=== PATIENT | female | born 1985 | race Caucasian/White ===

== ENCOUNTER 2017-06-29 17:16 | Emergency (ER) | payer BC ==
[2017-06-29] MEDS ORDERED: Sodium Chloride 0.9% 1,000 ML IV ONE (17:46)
--- NOTE | 2017-06-29 17:49 | EDM.PDOC ---
ED HPI GENERAL MEDICAL PROBLEM - General Chief Complaint: General Stated Complaint: BODY TINGLY Time Seen by Provider: 06/29/17 17:26 - History of Present Illness INITIAL COMMENTS - FREE TEXT/NARRATIVE: HISTORY AND PHYSICAL: History of present illness: Patient 31-year-old white female history of anxiety who presents with a concern of dehydration they state she's had poor oral intake and has had similar episodes in the past. No fever chills nausea vomiting other concern Review of systems: As per history of present illness and below otherwise all systems reviewed and negative. Past medical history: As per history of present illness and as reviewed below otherwise noncontributory. Surgical history: As per history of present illness and as reviewed below otherwise noncontributory. Social history: No reported history of drug or alcohol abuse. Family history: As per history of present illness and as reviewed below otherwise noncontributory. Physical exam: HEENT: Atraumatic, normocephalic, pupils reactive, negative for conjunctival pallor or scleral icterus, mucous membranes dry, throat clear, neck supple, nontender, trachea midline. Lungs: Clear to auscultation, breath sounds equal bilaterally, chest nontender. Heart: S1S2, regular, negative for clicks, rubs, or JVD. Abdomen: Soft, nondistended, nontender. Negative for masses or hepatosplenomegaly. Negative for costovertebral tenderness. Pelvis: Stable nontender. Genitourinary: Deferred. Rectal: Deferred. Extremities: Atraumatic, negative for cords or calf pain. Neurovascular unremarkable. Neuro: Awake, alert, oriented. Cranial nerves II through XII unremarkable. Cerebellum unremarkable. Motor and sensory unremarkable throughout. Exam nonfocal. Diagnostics: CBC CMP hCG Therapeutics: Saline 1 L bolus Impression: #1 dehydration #2 history of anxiety Definitive disposition and diagnosis as appropriate pending reevaluation and review of above. 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 Psychiatric History: Reports: Anxiety - Infectious Disease History Infectious Disease History: Reports: Chicken Pox - Past Surgical History HEENT Surgical History: Reports: Oral Surgery Female Surgical History: Reports: Breast Implant Musculoskeletal Surgical History: Reports: Other (See Below) Social & Family History - Family History Family Medical History: Noncontributory - Tobacco Use Smoking Status *Q: Never Smoker Second Hand Smoke Exposure: No - Caffeine Use Caffeine Use: Reports: None - Recreational Drug Use Recreational Drug Use: No ED ROS GENERAL - Review of Systems Review Of Systems: ROS reveals no pertinent complaints other than HPI. ED EXAM, GENERAL - Physical Exam Exam: See Below (See dictation) Course - Vital Signs Last Recorded V/S: Last Vital Signs Temp 36.9 C 06/29/17 17:34 Pulse 69 06/29/17 17:34 Resp 24 H 06/29/17 17:34 BP 131/92 H 06/29/17 17:34 Pulse Ox 98 06/29/17 17:34 - Orders/Labs/Meds Orders: Active Orders 24 hr Category Date Time Status CBC WITH AUTO DIFF [HEME] Stat Lab 06/29/17 17:46 Ordered COMPREHENSIVE METABOLIC PN,CMP [CHEM] Stat Lab 06/29/17 17:46 Ordered HCG QUALITATIVE,SERUM [CHEM] Stat Lab 06/29/17 17:46 Ordered Sodium Chloride 0.9% [Normal Saline] 1,000 ml Med 06/29/17 17:46 Ordered IV STAT Departure - Departure Time of Disposition: 17:48 Disposition: Home, Self-Care 01 Condition: Good Clinical Impression: Dehydration, History of anxiety - Discharge Information Referrals: Ever Becerra MD [Primary Care Provider] - Additional Instructions: The following information is given to patients seen in the emergency department who are being discharged to home. This information is to outline your options for follow-up care. We provide all patients seen in our emergency department with a follow-up referral. The need for follow-up, as well as the timing and circumstances, are variable depending upon the specifics of your emergency department visit. If you don't have a primary care physician on staff, we will provide you with a referral. We always advise you to contact your personal physician following an emergency department visit to inform them of the circumstance of the visit and for follow-up with them and/or the need for any referrals to a consulting specialist. The emergency department will also refer you to a specialist when appropriate. This referral assures that you have the opportunity for followup care with a specialist. All of these measure are taken in an effort to provide you with optimal care, which includes your followup. Under all circumstances we always encourage you to contact your private physician who remains a resource for coordinating your care. When calling for followup care, please make the office aware that this follow-up is from your recent emergency room visit. If for any reason you are refused follow-up, please contact the [facility] emergency department at and asked to speak to the emergency department charge nurse. Continue current medications push fluids follow primary medical doctor 1-2 days return as needed as discussed - My Orders Last 24 Hours: My Active Orders 06/29/17 17:46 CBC WITH AUTO DIFF [HEME] Stat COMPREHENSIVE METABOLIC PN,CMP [CHEM] Stat HCG QUALITATIVE,SERUM [CHEM] Stat Sodium Chloride 0.9% [Normal Saline] 1,000 ml IV STAT - Assessment/Plan Last 24 Hours: My Active Orders 06/29/17 17:46 CBC WITH AUTO DIFF [HEME] Stat COMPREHENSIVE METABOLIC PN,CMP [CHEM] Stat HCG QUALITATIVE,SERUM [CHEM] Stat Sodium Chloride 0.9% [Normal Saline] 1,000 ml IV STAT
[2017-06-29] MEDS ORDERED: LORazepam 2 MG/ML MDV IVPUSH ONE (18:05)
[2017-06-29 18:23] LABS: CHLORIDE,CL 108 mmol/L (98-110); SODIUM,NA 141 mmol/L (136-146)
[2017-06-29 19:03] VITALS: BP 113/71
== END 2017-06-29 18:58 | disposition home or self-care (01) ==
LOC: MW.ED 17:16
DX: E86.0 Dehydration (principal); F41.9 Anxiety disorder, unspecified
CPT/HCPCS: 36415; 80053; 84703; 85025; 96361; 96374; 99284; J2060; J7040

== ENCOUNTER 2019-09-22 04:59 | Inpatient (IN) | payer SELFPAY ==
[2019-09-22] MEDS ORDERED: Tranexamic Acid 1,000 MG in Sodium Chloride 0.9% 100 ML IV PRN (05:39)
[2019-09-22] MEDS ORDERED: Butorphanol 1 MG/ML SDV IVPUSH PRN (05:39)
[2019-09-22] MEDS ORDERED: Misoprostol 200 MCG Tab PO PRN (05:39)
[2019-09-22] MEDS ORDERED: Sodium Chloride 0.9% 2.5 ML Syringe FLUSH PRN (05:39)
[2019-09-22] MEDS ORDERED: Sodium Chloride 0.9% 10 ML Syringe FLUSH PRN (05:39)
[2019-09-22] MEDS ORDERED: Lidocaine 1% 50 ML MDV INJECT PRN (05:39)
[2019-09-22] MEDS ORDERED: Water For Irrigation,Sterile 1,000 ML Container IRR PRN (05:39)
[2019-09-22] MEDS ORDERED: Methylergonovine 0.2 MG/1 ML Amp IM PRN (05:39)
[2019-09-22] MEDS ORDERED: Carboprost Tromethamine 250 MCG/1 ML Amp IM PRN (05:39)
[2019-09-22] MEDS ORDERED: Nalbuphine 10 MG/1 ML Vial IVPUSH PRN (05:39)
[2019-09-22] MEDS ORDERED: Sodium Chloride 0.9% 10 ML SDV IV PRN (05:39)
[2019-09-22] MEDS ORDERED: Terbutaline 1 MG/ML SDV SUBCUT PRN (05:42)
[2019-09-22] MEDS ORDERED: Oxytocin/0.9 % Sodium Chloride 30 UNIT/500 ML BAG IV SCH ×2 (05:45)
[2019-09-22] MEDS: Lactated Ringers 1,000 ML IV SCH ×3 (08:55→14:30)
[2019-09-22] MEDS ORDERED: fentaNYL 100 MCG/2 ML SDV ONE (14:01)
[2019-09-22] MEDS ORDERED: Ropivacaine 0.2% 2 MG/ML 20 ML SDV ONE (14:01)
[2019-09-22] MEDS ORDERED: Ropivacaine HCl/PF 100 ML ONE (14:02)
[2019-09-22] MEDS ORDERED: ePHEDrine 50 MG/ML SDV ONE (14:32)
--- NOTE | 2019-09-22 14:44 | PCM.PREANE ---
Preanesthetic Assessment - Procedure Proposed Procedure: Labor Epidural. . Active labor. Induction. - Anesthesia/Transfusion/Family Hx Anesthesia History: Prior Anesthesia Without Reaction Family History of Anesthesia Reaction: No Transfusion History: No Prior Transfusion(s) Intubation History: Unknown Additional History: Maternal HTN. Very anxious. - Review of Systems General: No Symptoms Pulmonary: No Symptoms Cardiovascular: Other (HTN) Gastrointestinal: No Symptoms, Decreased Appetite, Nausea Other: Reports: Anxiety - Physical Assessment NPO Status Date: 09/22/19 NPO Status Time: 14:00 Height: 1.7 m Weight: 78.925 kg ASA Class: 2 Mental Status: Alert & Oriented x3 Dentition: Reports: Normal Dentition Thyro-Mental Finger Breadths: 3 Mouth Opening Finger Breadths: 3 ROM/Head Extension: Full Lungs: Clear to Auscultation Cardiovascular: Regular Rate - Lab Values: Laboratory Last Values WBC 6.33 K/uL (4.0-11.0) 09/22/19 05:58 RBC 4.11 M/uL (4.30-5.90) L 09/22/19 05:58 Hgb 12.5 g/dL (12.0-16.0) 09/22/19 05:58 Hct 37.3 % (36.0-46.0) 09/22/19 05:58 MCV 90.8 fL (80.0-98.0) 09/22/19 05:58 MCH 30.4 pg (27.0-32.0) 09/22/19 05:58 MCHC 33.5 g/dL (31.0-37.0) 09/22/19 05:58 RDW Std Deviation 44.6 fl (28.0-62.0) 09/22/19 05:58 RDW Coeff of Noé 14 % (11.0-15.0) 09/22/19 05:58 Plt Count 132 K/uL (150-400) L 09/22/19 05:58 MPV 9.80 fL (7.40-12.00) 09/22/19 05:58 Nucleated RBC % 0.0 /100WBC 09/22/19 05:58 Nucleated RBCs # 0 K/uL 09/22/19 05:58 Blood Type A POSITIVE 09/22/19 05:58 Antibody Screen NEGATIVE 09/22/19 05:58 - Allergies Allergies/Adverse Reactions: Allergies Allergy/AdvReac Type Severity Reaction Status Date / Time No Known Allergies Allergy Verified 09/22/19 05:21 - Blood Blood Available: No Product(s) Available: None - Acknowledgements Anesthesia Type Planned: Epidural Pt an Appropriate Candidate for the Planned Anesthesia: Yes Alternatives and Risks of Anesthesia Discussed w Pt/Guardian: Yes Pt/Guardian Understands and Agrees with Anesthesia Plan: Yes Additional Comments: On pitocin gtt. Active labor. Anxious. Acceptable candidate for procedure. Discussed. ? answered. Wishes to proceed. Permit signed. 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 Psychiatric History: Reports: Anxiety - Infectious Disease History Infectious Disease History: Reports: Chicken Pox - Past Surgical History HEENT Surgical History: Reports: Oral Surgery Cardiovascular Surgical History: Reports: None Female Surgical History: Reports: Breast Implant Neurological Surgical History: Reports: Discectomy - SUBSTANCE USE Smoking Status *Q: Never Smoker Recreational Drug Use History: No - HOME MEDS Home Medications: Home Meds Desvenlafaxine Succinate [Pristiq ER] 25 mg PO BEDTIME 09/22/19 [History] Metoprolol Succinate [Toprol XL] 25 mg PO BEDTIME 09/22/19 [History] - CURRENT (IN HOUSE) MEDS Current Meds: Current Medications Butorphanol Tartrate (Stadol) 1 mg IVPUSH Q1H PRN PRN Reason: Pain Carboprost Tromethamine (Hemabate Ds) 250 mcg IM ASDIRECTED PRN PRN Reason: Post Hemorrhage Lactated Ringer's (Ringers, Lactated) 1,000 mls @ 150 mls/hr IV ASDIRECTED LETY Last Admin: 09/22/19 14:01 Dose: 150 mls/hr Oxytocin/Sodium Chloride (Oxytocin 30 Unit/500 Ml-Ns) 30 unit in 500 mls @ 500 mls/hr IV TITRATE LETY Oxytocin/Sodium Chloride (Oxytocin 30 Unit/500 Ml-Ns) 30 unit in 500 mls @ 2 mls/hr IV TITRATE LETY; Protocol Last Titration: 09/22/19 13:57 Dose: 8 munits/min, 8 mls/hr Tranexamic Acid 1,000 mg/ (Sodium Chloride) 110 mls @ 660 mls/hr IV ONETIME PRN PRN Reason: Bleeding Lidocaine HCl (Xylocaine 1%) 50 ml INJECT ONETIME PRN PRN Reason: Laceration repair Methylergonovine Maleate (Methergine) 0.2 mg IM ASDIRECTED PRN PRN Reason: Post Hemorrhage Misoprostol (Cytotec) 200 mcg PO ONETIME PRN PRN Reason: Post Hemorrhage Nalbuphine HCl (Nubain) 10 mg IVPUSH Q1H PRN PRN Reason: Pain (severe 7-10) Sodium Chloride (Saline Flush) 10 ml FLUSH ASDIRECTED PRN PRN Reason: Keep Vein Open Sodium Chloride (Saline Flush) 2.5 ml FLUSH ASDIRECTED PRN PRN Reason: Keep Vein Open Sodium Chloride (Normal Saline) 10 ml IV ASDIRECTED PRN PRN Reason: IV Use Sterile Water (Sterile Water For Irrigation) 1,000 ml IRR ASDIRECTED PRN PRN Reason: delivery Terbutaline Sulfate (Brethine) 0.25 mg SUBCUT ASDIRECTED PRN PRN Reason: Tacysystole Discontinued Medications Fentanyl (Sublimaze) Confirm Administered Dose 100 mcg .ROUTE .STStemline Therapeutics-MED ONE Stop: 09/22/19 14:02 Ropivacaine (Naropin 0.2%) Confirm Administered Dose 100 mls @ as directed .ROUTE .STK-MED ONE Stop: 09/22/19 14:03 Ropivacaine (Naropin 0.2%) Confirm Administered Dose 20 ml .ROUTE .STK-MED ONE Stop: 09/22/19 14:02
[2019-09-22] MEDS ORDERED: Bupivacaine 0.5% 30 ML SDV ONE (15:09)
[2019-09-22] MEDS ORDERED: Fat Emulsion 0 ML IV ONE (15:17)
--- NOTE | 2019-09-22 16:23 | PCM.PRNOTE ---
- Free Text/Narrative Note: Requested for Labor Epidural, . Chart reviewed, discussed, ? answered. Significant Hx of lumbar issues and LESI's. 14:00 Prep with Chloro-prep 14:03 4ml 1% Lido skin local @ L3-4 14:12 Space ID'd via FELICIA with air/saline mix on first pass. Reconfirmed with 3ml saline. 14:14 Catheter to 8cm without issues. Complained of left sided ache. Resolved when sat straight-up. 14:16 Test with 4ml 1.5% lido with 1:200K epi added. Test negative. 14:25-32 Naropin 0.2% 8ml + 100mcg fentanly added. 14:45 Minimal pain relief. 14:57 5ml Naropin bolus + gtt on @ 8ml/hr. Slight improvement in discomfort. 15:04 Discussed poor analgesia, opted for 4ml 0.5% marcaine bolus to see if drug related. Given 15:09. c/o'd lightheadedness, VSS. Passed quickly. 15:15 Gave option for replacing catheter. Discussed. Pt wishes to proceed. 15:22 Catheter removed intact. 15:23 Prep with chloroprep at L2-3. 15:25 Lidocaine 1% 4ml skin local 15:26 Space ID'd via FELICIA with saline/air mix on first pass. Reconfirmed with saline. Catheter to 8cm without issues. No parasthesia's 15:29 Test dose with 4ml 1.5% lidocaine with 1:200K epi added. TEST negative. 15:35-40 Bolus with 9ml 0.2% Naropin. 15:42 Epidural gtt on at 8ml/hr. 4ml q15 bolus. Pain minimal at present. VSS 16:25 Resting quietly. VSS. Excellent analgesia.
[2019-09-22] MEDS ORDERED: oxyCODONE 5 MG Tab PO PRN (17:37)
[2019-09-22] MEDS ORDERED: Acetaminophen 500 MG Tab PO PRN ×2 (17:37)
[2019-09-22] MEDS ORDERED: Bisacodyl 10 MG Supp RECTAL PRN (17:37)
[2019-09-22] MEDS ORDERED: Witch Hazel Medicated Pads 40/Jar TOP PRN (17:37)
[2019-09-22] MEDS ORDERED: Lanolin 100% Cream 7 GM Tube TOP PRN (17:37)
[2019-09-22] MEDS ORDERED: Docusate Sodium 100 MG Cap PO PRN (17:37)
[2019-09-22] MEDS ORDERED: Benzocaine/Menthol 20%-0.5% Spray 78 GM Cannister TOP PRN (17:37)
[2019-09-22] MEDS ORDERED: Ibuprofen 400 MG Tab PO PRN (17:37)
[2019-09-22] MEDS ORDERED: Ondansetron 4 MG/2 ML SDV IVPUSH PRN (17:37)
--- NOTE | 2019-09-22 17:43 | PCM.OPNOTE ---
- General Post-Op/Procedure Note Date of Surgery/Procedure: 09/22/19 Operative Procedure(s): /IP Findings: Viable female APGARs 8, 9 weight 3170gm. Spontaneous delivery intact placenta with 3 V cord Pre Op Diagnosis: 39/3 week IUP. Elective IOL Post-Op Diagnosis: Same Anesthesia Technique: Epidural Primary Surgeon: Mercedes Dyer EBL in mLs: 200 Complications: none known Condition: Stable Free Text/Narrative:: Dictation [id number]
--- NOTE | 2019-09-22 18:27 | OR ---
SURGEON: Mercedes Dyer M.D. DATE OF PROCEDURE: 09/22/2019 PREOPERATIVE DIAGNOSES: 1. A 39-3/7 weeks' intrauterine . 2. Elective induction of labor. POSTOPERATIVE DIAGNOSES: 1. A 39-3/7 weeks' intrauterine . 2. Elective induction of labor. PROCEDURE: Spontaneous vaginal delivery, intact perineum PRIMARY SURGEON: Mercedes Dyer MD. ANESTHESIA: Epidural. ESTIMATED BLOOD LOSS: 200 mL. COMPLICATIONS: None known. FINDINGS: Viable female. scores 8 at one minute and 9 at five minutes. Weight of 3170 g. Spontaneous delivery, intact placenta, 3-vessel cord. DISPOSITION: to nursery, mom in LDRP. PROCEDURE DETAILS: Eulalia is a 33-year-old, G4, P3, at 39-3/7 weeks' gestational age who presents for scheduled induction of labor on the morning of 09/22/2019. On initial examination, she was found to be 1 cm, 60% effaced, minus 3 station, therefore, was admitted. Routine labs drawn, IV hydration was initiated. Initiated Pitocin augmentation and had a reactive NST. The patient became mildly uncomfortable throughout the morning hours with Pitocin and underwent amniotomy shortly before 12 p.m. A small amount of clear fluid was returned. The patient became increasingly uncomfortable thereafter. In the early afternoon hours, she underwent regional anesthesia in the form of epidural. The first one did not set properly, therefore was actually replaced with a second epidural, at which time, she became much more comfortable. Shortly after epidural, she was found to be 5 cm, 90% effaced, 0 station. Shortly over an hour, progressed to complete, 100% effaced, and +2 station. I was called for delivery. Upon my arrival, the patient was placed in modified dorsal lithotomy position and was prepped and draped in usual aseptic manner. At this point, she was a +3 station. With pushing efforts, was able to push and deliver infant's head atraumatically spontaneously, followed by anterior shoulder, posterior shoulder, and remainder of the body without difficulty. The infant's oropharynx and nares were bulb suctioned and was handed off to her mother with attending nursing staff at the side. After a delay, the cord was clamped x2 and cut. Cord arterial, cord venous, cord blood sampling was obtained. Light pressure was applied while the placenta was delivered spontaneously intact. Vigorous fundal uterine massage was then applied while 30 units of Pitocin was delivered in 500 mL of IV fluid. Upon inspection of cervix, vaginal sidewall, and perineum, these were found to be intact. Uterus remained firm. Sponge count and instrument count were correct. The patient remained in LDRP, to nursery. AKASH / BREANA /[id number]
[2019-09-22] MEDS: Ibuprofen 800 MG Tab PO PRN (20:39)
[2019-09-23] MEDS: Ibuprofen 800 MG Tab PO PRN ×2 (02:28→15:38)
--- NOTE | 2019-09-23 04:06 | PCM.PNPP ---
- General Info Date of Service: 09/23/19 Functional Status: Reports: Pain Controlled, Tolerating Diet, Ambulating, Urinating - Review of Systems General: Reports: Fatigue. Denies: Fever, Weakness Pulmonary: Denies: Shortness of Breath Cardiovascular: Denies: Chest Pain, Palpitations, Lightheadedness Gastrointestinal: Denies: Abdominal Pain, Nausea, Vomiting Genitourinary: Denies: Flank Pain Musculoskeletal: Reports: No Symptoms Skin: Reports: No Symptoms Neurological: Reports: No Symptoms Psychiatric: Reports: No Symptoms - General Info Date of Service: 09/23/19 - Patient Data Vital Signs - Most Recent: Last Vital Signs Temp 36.3 C 09/23/19 00:25 Pulse 57 L 09/23/19 00:25 Resp 18 09/23/19 00:25 BP 118/70 09/23/19 00:25 Pulse Ox 96 09/23/19 00:25 Weight - Most Recent: 78.925 kg Lab Results - Last 24 Hours: Laboratory Results - last 24 hr 09/22/19 09/22/19 09/22/19 Range/Units 05:58 05:58 17:18 WBC 6.33 (4.0-11.0) K/uL RBC 4.11 L (4.30-5.90) M/uL Hgb 12.5 (12.0-16.0) g/dL Hct 37.3 (36.0-46.0) % MCV 90.8 (80.0-98.0) fL MCH 30.4 (27.0-32.0) pg MCHC 33.5 (31.0-37.0) g/dL RDW Std Deviation 44.6 (28.0-62.0) fl RDW Coeff of Noé 14 (11.0-15.0) % Plt Count 132 L (150-400) K/uL MPV 9.80 (7.40-12.00) fL Nucleated RBC % 0.0 /100WBC Nucleated RBCs # 0 K/uL Cord ABG pH 7.396 H (7.18-7.38) Cord ABG Base Excess -3 (-10--2) Cord VBG pH 7.396 (7.25-7.45) Cord VBG Base Excess -4 (-10--2) Blood Type A POSITIVE Antibody Screen NEGATIVE Med Orders - Current: Current Medications Acetaminophen (Tylenol Extra Strength) 500 mg PO Q4H PRN PRN Reason: Pain Acetaminophen (Tylenol Extra Strength) 1,000 mg PO Q4H PRN PRN Reason: Pain Benzocaine/Menthol (Dermoplast Pain Relief 20%-0.5% [place]) 78 gm TOP ASDIRECTED PRN PRN Reason: Perineal Comfort Measure Last Admin: 09/22/19 20:38 Dose: 1 spray Bisacodyl (Dulcolax) 10 mg RECTAL ONETIME PRN PRN Reason: Constipation Carboprost Tromethamine (Hemabate Ds) 250 mcg IM ASDIRECTED PRN PRN Reason: Post Hemorrhage Docusate Sodium (Colace) 100 mg PO BID PRN PRN Reason: Constipation Last Admin: 09/22/19 20:39 Dose: 100 mg Emollient Ointment (Lansinoh Hpa) 0 gm TOP ASDIRECTED PRN PRN Reason: Sore Nipples Lactated Ringer's (Ringers, Lactated) 1,000 mls @ 150 mls/hr IV ASDIRECTED LETY Last Admin: 09/22/19 14:30 Dose: 150 mls/hr Oxytocin/Sodium Chloride (Oxytocin 30 Unit/500 Ml-Ns) 30 unit in 500 mls @ 500 mls/hr IV TITRATE LETY Oxytocin/Sodium Chloride (Oxytocin 30 Unit/500 Ml-Ns) 30 unit in 500 mls @ 2 mls/hr IV TITRATE LETY; Protocol Last Titration: 09/22/19 16:00 Dose: 12 munits/min, 12 mls/hr Tranexamic Acid 1,000 mg/ (Sodium Chloride) 110 mls @ 660 mls/hr IV ONETIME PRN PRN Reason: Bleeding Ibuprofen (Motrin) 400 mg PO Q4H PRN PRN Reason: Pain Ibuprofen (Motrin) 800 mg PO Q6H PRN PRN Reason: Pain Last Admin: 09/23/19 02:28 Dose: 800 mg Methylergonovine Maleate (Methergine) 0.2 mg IM ASDIRECTED PRN PRN Reason: Post Hemorrhage Ondansetron HCl (Zofran) 4 mg IVPUSH Q6H PRN PRN Reason: Nausea/Vomiting Oxycodone HCl (Oxycodone) 5 mg PO Q2H PRN PRN Reason: Pain Sodium Chloride (Saline Flush) 10 ml FLUSH ASDIRECTED PRN PRN Reason: Keep Vein Open Sodium Chloride (Saline Flush) 2.5 ml FLUSH ASDIRECTED PRN PRN Reason: Keep Vein Open Sodium Chloride (Normal Saline) 10 ml IV ASDIRECTED PRN PRN Reason: IV Use Sterile Water (Sterile Water For Irrigation) 1,000 ml IRR ASDIRECTED PRN PRN Reason: delivery Ella Allen (Tucks) 1 pad TOP ASDIRECTED PRN PRN Reason: comfort care Last Admin: 09/22/19 20:38 Dose: 1 pad Discontinued Medications Bupivacaine HCl (Marcaine 0.5%) Confirm Administered Dose 30 ml .ROUTE .STK-MED ONE Stop: 09/22/19 15:10 Last Admin: 09/22/19 19:50 Dose: Not Given Butorphanol Tartrate (Stadol) 1 mg IVPUSH Q1H PRN PRN Reason: Pain Ephedrine Sulfate (Ephedrine Sulfate) Confirm Administered Dose 50 mg .ROUTE .STK-MED ONE Stop: 09/22/19 14:33 Fentanyl (Sublimaze) Confirm Administered Dose 100 mcg .ROUTE .STK-MED ONE Stop: 09/22/19 14:02 Last Admin: 09/22/19 19:50 Dose: Not Given Ropivacaine (Naropin 0.2%) Confirm Administered Dose 100 mls @ as directed .ROUTE .STK-MED ONE Stop: 09/22/19 14:03 Last Admin: 09/22/19 19:50 Dose: Not Given Fat Emulsion Intravenous (Intralipid 20%) Confirm Administered Dose 250 mls @ as directed IV .STK-MED ONE Stop: 09/22/19 15:18 Last Admin: 09/22/19 19:51 Dose: Not Given Lidocaine HCl (Xylocaine 1%) 50 ml INJECT ONETIME PRN PRN Reason: Laceration repair Misoprostol (Cytotec) 200 mcg PO ONETIME PRN PRN Reason: Post Hemorrhage Nalbuphine HCl (Nubain) 10 mg IVPUSH Q1H PRN PRN Reason: Pain (severe 7-10) Ropivacaine (Naropin 0.2%) Confirm Administered Dose 20 ml .ROUTE .STK-MED ONE Stop: 09/22/19 14:02 Last Admin: 09/22/19 19:50 Dose: Not Given Terbutaline Sulfate (Brethine) 0.25 mg SUBCUT ASDIRECTED PRN PRN Reason: Tacysystole - Interaction Support Person: - Recovery Exam Fundal Tone: Firm Fundal Level: 1 Fingerbreadths Below Umbilicus Fundal Placement: Midline Lochia Amount: Scant Lochia Color: Rubra/Red Perineum Description: Intact, Minimal Bruising/Swelling Episiotomy/Laceration: None Bladder Status: Voiding Urinary Elimination: Voided - Exam General: Alert, Oriented Lungs: Normal Respiratory Effort Cardiovascular: Regular Rate, Regular Rhythm GI/Abdominal Exam: Normal Bowel Sounds, Soft Extremities: Pedal Edema (trace). No: Ne's Sign Skin: Warm, Dry, Intact Neurological: No New Focal Deficit Psy/Mental Status: Alert, Normal Affect, Normal Mood - Problem List & Annotations (1) Vaginal delivery SNOMED Code(s): 132850822 Code(s): O80 - ENCOUNTER FOR FULL-TERM UNCOMPLICATED DELIVERY Status: Acute Current Visit: Yes - Problem List Review Problem List Initiated/Reviewed/Updated: Yes - My Orders Last 24 Hours: My Active Orders 09/22/19 05:00 Patient Status [ADT] Routine Heart Tones [RC] CONTINUOUS May Shower [RC] ASDIRECTED Up ad Lilly [RC] ASDIRECTED Vaginal Exam [RC] PRN Vital Signs [RC] PER UNIT ROUTINE 09/22/19 05:39 Non Stress Test [RC] PER UNIT ROUTINE Notify Provider [RC] PRN Carboprost Tromethamine [Hemabate DS] 250 mcg IM ASDIRECTED PRN Methylergonovine [Methergine] 0.2 mg IM ASDIRECTED PRN Sodium Chloride 0.9% [Normal Saline] 10 ml IV ASDIRECTED PRN Sodium Chloride 0.9% [Saline Flush] 10 ml FLUSH ASDIRECTED PRN Sodium Chloride 0.9% [Saline Flush] 2.5 ml FLUSH ASDIRECTED PRN Tranexamic Acid [Cyklokapron] 1,000 mg Sodium Chloride 0.9% [Normal Saline] 100 ml IV ONETIME Water For Irrigation,Sterile [Sterile Water for Irrigation] 1,000 ml IRR ASDIRECTED PRN Peripheral IV Insertion Adult [OM.PC] Routine Resuscitation Status Routine 09/22/19 05:42 Bedrest Bathroom Privileges [RC] ASDIRECTED Communication Order [RC] ASDIRECTED Communication Order [RC] ASDIRECTED Notify Provider [RC] PRN Oxygen Therapy [RC] ASDIRECTED Vaginal Exam [RC] PRN Vital Signs [RC] PER UNIT ROUTINE 09/22/19 05:45 Lactated Ringers [Ringers, Lactated] 1,000 ml IV ASDIRECTED Oxytocin/0.9 % Sodium Chloride [Oxytocin 30 Unit/500 ML-NS] 30 unit in 500 ml IV TITRATE Oxytocin/0.9 % Sodium Chloride [Oxytocin 30 Unit/500 ML-NS] 30 unit in 500 ml IV TITRATE Medication Administration Instruction [OM.PC] Q3H 09/22/19 05:58 RPR (SYPHILIS SERO) W/ RFLX [REF] Routine 09/22/19 17:37 Patient Status [ADT] Routine May Shower [RC] ASDIRECTED Notify Provider Vital Signs [RC] ASDIRECTED Up ad Lilly [RC] ASDIRECTED Vital Signs [RC] PER UNIT ROUTINE Acetaminophen [Tylenol Extra Strength] 1,000 mg PO Q4H PRN Acetaminophen [Tylenol Extra Strength] 500 mg PO Q4H PRN Benzocaine/Menthol [Dermoplast Pain Relief 20%-0.5% [place]] 78 gm TOP ASDIRECTED PRN Docusate Sodium [Colace] 100 mg PO BID PRN Ibuprofen [Motrin] 400 mg PO Q4H PRN Ibuprofen [Motrin] 800 mg PO Q6H PRN Lanolin [Lansinoh HPA] See Dose Instructions TOP ASDIRECTED PRN Ondansetron [Zofran] 4 mg IVPUSH Q6H PRN Witch Tiffany [Tucks] 1 pad TOP ASDIRECTED PRN bisacodyL [Dulcolax] 10 mg RECTAL ONETIME PRN oxyCODONE 5 mg PO Q2H PRN Assess Lochia [WOMSER] Per Unit Routine Assess Uterine Involution [WOMSER] Per Unit Routine Peripheral IV Discontinue [OM.PC] Routine 09/22/19 17:38 Cooling Warming Measures [RC] ASDIRECTED Ice Therapy [OM.PC] Per Unit Routine Perineal Care [OM.PC] Per Unit Routine Sitz Bath [OM.PC] Per Unit Routine 09/22/19 Dinner Regular Diet [DIET] 09/23/19 04:04 Ready for Discharge [RC] PER UNIT ROUTINE 09/23/19 05:11 HEMOGLOBIN/HEMATOCRIT,HH [HEME] Routine - Assessment Assessment:: PPD 1 status post /IP - Plan Plan:: going well. Would like to go home later today. Discharge instructions reviewed. Follow up at [facility] 6 weeks. Discharge to home this evening.
[2019-09-23 17:25] VITALS: BP 114/71; PULSE 65
== END 2019-09-23 19:48 | disposition home or self-care (01) | DRG 807 ==
LOC: MW.OBCHECK 04:59 → MW.OB 05:00 → UNDOADMOB 05:00 → OBSVTOIN 17:18 → MW.OB 22:17
PROVIDERS: ADMIT Obstetrics & Gynecology; ATTEND Obstetrics & Gynecology
PROC: 10E0XZZ Delivery of Products of Conception, External Approach (ICD-10-PCS; principal; 2019-09-22)
PROC: 10907ZC Drainage of Amniotic Fluid, Therapeutic from Products of Conception, Via Natural or Artificial Opening (ICD-10-PCS; 2019-09-22)
PROC: 3E0R3BZ Introduction of Anesthetic Agent into Spinal Canal, Percutaneous Approach (ICD-10-PCS; 2019-09-22)
PROC: 00HU33Z Insertion of Infusion Device into Spinal Canal, Percutaneous Approach (ICD-10-PCS; 2019-09-22)
DX: O80 Encounter for full-term uncomplicated delivery (principal); Z37.0 Single live birth; Z3A.39 39 weeks gestation of pregnancy
CPT/HCPCS: 01967; 36415; 51702; 59025; 59409; 82803; 85014; 85018; 85027; 86592; 86850; 86900; 86901; A9270-GY; J2590; J2795; J3010; J3490; J7120